=== PATIENT | female | born 1990 | race Caucasian/White ===

== ENCOUNTER 2023-11-09 15:29 | Emergency (ER) | payer OTHER, SELFPAY ==
[2023-11-09 16:20] VITALS: BP 143/76; PULSE 82; RESP 22; TEMP 36.7; O2SAT 100; BMI 58.7
--- NOTE | 2023-11-09 17:10 | EXP.UTC ---
Discharge Plan Disposition Patient Disposition: Home, Self-Care Condition: Good Prescriptions Prescriptions: New gentamicin 0.3 % drops 2 drp ophthalmic (eye) Q4H Qty: 5 0RF Rx Instructions: in right eye as directed amoxicillin-pot clavulanate 875-125 mg Tablet 1 tab PO Q12H Qty: 20 0RF fluticasone propionate [Flonase Allergy Relief] 50 mcg/actuation spray,suspension 1 - 2 spray intranasal DAILY Qty: 16 0RF Rx Instructions: administer into each nostril daily ondansetron 4 mg tablet,disintegrating 4 mg PO Q8H PRN (Reason: nausea and vomiting) Qty: 10 0RF No Action cetirizine 10 mg tablet 10 mg PO DAILY Patient Comments: Take 1 tablet every day by oral route. phentermine 37.5 mg tablet 37.5 mg PO DAILY Patient Comments: TAKE ONE TABLET BY MOUTH ONCE DAILY lisinopril 10 mg tablet 10 mg PO DAILY Patient Comments: TAKE ONE TABLET BY MOUTH ONCE DAILY hydrochlorothiazide 25 mg tablet 25 mg PO DAILY Patient Comments: take 1 tablet in the morning Once a day for 30 day(s) bupropion HCl 150 mg tablet extended release 24 hr 150 mg PO DAILY Patient Comments: Take 1 tablet every day by oral route. Referrals Follow up/Referrals: Fercho Mahoney [Primary Care Provider] - See instructions Activity Restrictions/Add. Instructions Additional Instructions/Restrictions: Take medication as prescribed Use eye drops as prescribed Follow up with your Family Doctor if no improvement or any worsening of symptoms Return if needed Straight to ER if any life threatening symptoms Clinical Impressions Clinical Impression: Sinusitis Qualifiers: Sinusitis location: unspecified location Chronicity: unspecified Qualified Code(s): J32.9 - Chronic sinusitis, unspecified Instructions Patient Instructions: Conjunctivitis, DI for Sinusitis, DI for Conjunctivitis Discharge ED Provider: Rylee Nova [facility] General Stated complaint: congestion, headache Mode of Arrival: Ambulatory Source of Information: Patient Limitations: No Limitations Time Seen by Provider: 11/09/23 17:10 Description of Symptoms (Recalled from Triage Doc. by RN): PATIENT C/O SINUS PRESSURE, RUNNY NOSE, AND RIGHT EYE DRAINAGE SINCE SUNDAY NIGHT HEENT Symptoms (Recalled from RN notes): Yes Resp Symptoms (Recalled from RN notes): No Skin Symptoms (Recalled from RN notes): No MS Symptoms (Recalled from RN notes): No Functional Status (Recalled from RN notes): WNL History of Present Illness Provider Complaint: Patient states that she thinks she has a bad sinus infection States that she has been having sinus pain and pressure on and off for a week worse since Wed States that she can feel it draining at times in the back of her throat and makes her stomach upset 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 and her right eye is draining and looking red Related Data Home Medications Medication Instructions Recorded Confirmed bupropion HCl 150 mg 24 hr tablet, 150 mg PO DAILY 11/09/23 11/09/23 extended release cetirizine 10 mg tablet 10 mg PO DAILY 11/09/23 11/09/23 hydrochlorothiazide 25 mg tablet 25 mg PO DAILY 11/09/23 11/09/23 lisinopril 10 mg tablet 10 mg PO DAILY 11/09/23 11/09/23 phentermine 37.5 mg tablet 37.5 mg PO DAILY 11/09/23 11/09/23 Previous Rx's Medication Instructions Recorded amoxicillin 875 mg-potassium 1 tab PO Q12H #20 tabs 11/09/23 clavulanate 125 mg tablet fluticasone propionate 50 1 - 2 spray intranasal DAILY #16 11/09/23 mcg/actuation nasal grams spray,suspension (Flonase Allergy Relief) gentamicin 0.3 % eye drops 2 drp ophthalmic (eye) Q4H #5 mL 11/09/23 ondansetron 4 mg disintegrating 4 mg PO Q8H PRN nausea and 11/09/23 tablet vomiting #10 tabs Allergies Allergy/AdvReac Type Severity Reaction Status Date / Time sulfamethoxazole Allergy Verified 11/09/23 16:35 [From Bactrim] trimethop
[2023-11-09 17:23] VITALS: BP 143/76; PULSE 82; RESP 22; TEMP 36.7; O2SAT 100
== END 2023-11-09 17:27 | disposition home or self-care (01) ==
PROVIDERS: Emergency Provider Nurse Practitioner; PCP Pediatrics
DX: J01.90 Acute sinusitis, unspecified (principal); H10.31 Unspecified acute conjunctivitis, right eye; R51.9 Headache, unspecified; R09.81 Nasal congestion; R09.82 Postnasal drip; R11.0 Nausea; I10 Essential (primary) hypertension
CPT/HCPCS: 99204; 99212; G0463

== ENCOUNTER 2024-11-08 12:36 | Emergency (ER) | payer OTHER, SELFPAY ==
[2024-11-08 14:15] VITALS: BP 137/78; PULSE 78; RESP 18; TEMP 36.7; O2SAT 100; BMI 62.4
--- NOTE | 2024-11-08 14:53 | EXP.UTC ---
Discharge Plan Disposition Patient Disposition: Home, Self-Care Condition: Good Prescriptions Prescriptions: New benzonatate 100 mg capsule 100 mg PO BID PRN (Reason: cough) 3 Days Qty: 7 0RF azithromycin 250 mg tablet 250 mg PO DIRECTED Qty: 6 0RF Rx Instructions: Take two (2) tablets on day #1, then one (1) tablet day #2 thru #5 fluticasone propionate 50 mcg/actuation spray,suspension 1 spray intranasal DAILY Qty: 16 0RF No Action cetirizine 10 mg tablet 10 mg PO DAILY Patient Comments: Take 1 tablet every day by oral route. phentermine 37.5 mg tablet 37.5 mg PO DAILY Patient Comments: TAKE ONE TABLET BY MOUTH ONCE DAILY lisinopril 10 mg tablet 10 mg PO DAILY Patient Comments: TAKE ONE TABLET BY MOUTH ONCE DAILY hydrochlorothiazide 25 mg tablet 25 mg PO DAILY Patient Comments: take 1 tablet in the morning Once a day for 30 day(s) bupropion HCl 150 mg tablet extended release 24 hr 150 mg PO DAILY Patient Comments: Take 1 tablet every day by oral route. gentamicin 0.3 % drops 2 drp ophthalmic (eye) Q4H Qty: 5 0RF Rx Instructions: in right eye as directed amoxicillin-pot clavulanate 875-125 mg Tablet 1 tab PO Q12H Qty: 20 0RF fluticasone propionate [Flonase Allergy Relief] 50 mcg/actuation spray,suspension 1 - 2 spray intranasal DAILY Qty: 16 0RF Rx Instructions: administer into each nostril daily ondansetron 4 mg tablet,disintegrating 4 mg PO Q8H PRN (Reason: nausea and vomiting) Qty: 10 0RF Referrals Follow up/Referrals: Fercho Mahoney [Primary Care Provider] - See instructions Activity Restrictions/Add. Instructions Additional Instructions/Restrictions: Start antibiotic patient to take as ordered for a full length of time even if you feel better. Sinus infections do not get better overnight. It may take 2-3 days to notice much improvement so be sure to use conservative measures as discussed for symptoms. Flonase 1 spray each nostril daily to help with nasal congestion, sinus and ear pressure/information Increase fluids Humidifier/vaporizer as needed Tylenol and ibuprofen as needed for fever or pain. If symptoms do not improve or get worse return or be seen in the ER Follow-up with primary care this week Clinical Impressions Clinical Impression: Sinusitis Qualifiers: Sinusitis location: unspecified location Chronicity: unspecified Qualified Code(s): J32.9 - Chronic sinusitis, unspecified Instructions Patient Instructions: DI for Sinusitis Print Language Print Language: Upper Sorbian [facility] [place] HPI General Stated complaint: sinus pressure/H/A Mode of Arrival: Ambulatory Source of Information: Patient Limitations: No Limitations Time Seen by Provider: 11/08/24 14:42 Description of Symptoms (Recalled from Triage Doc. by RN): PATIENT C/O COUGH AND SINUS PRESSURE X 2 DAYS HEENT Symptoms (Recalled from RN notes): Yes Resp Symptoms (Recalled from RN notes): Yes Skin Symptoms (Recalled from RN notes): No MS Symptoms (Recalled from RN notes): No Functional Status (Recalled from RN notes): WNL History of Present Illness Provider Complaint: 34-year-old female presents for sinus pressure, cough, sinus tenderness, and thick green drainage. Patient states she has been taken [id number] medicine is not helping Related Data Home Medications ?Medication ?Instructions ?Recorded ?Confirmed bupropion HCl 150 mg 24 hr tablet, 150 mg PO DAILY 11/09/23 11/09/23 extended release cetirizine 10 mg tablet 10 mg PO DAILY 11/09/23 11/09/23 hydrochlorothiazide 25 mg tablet 25 mg PO DAILY 11/09/23 11/09/23 lisinopril 10 mg tablet 10 mg PO DAILY 11/09/23 11/09/23 phentermine 37.5 mg tablet 37.5 mg PO DAILY 11/09/23 11/09/23 Previous Rx's ?Medication ?Instructions ?Recorded amoxicillin 875 mg-potassium 1 tab PO Q12H #20 tabs 11/09/23 clavulanate 125 mg tablet fluticasone propionate 50 1 - 2 spray intranasal DAILY #16 11/09/23 mcg/actuation nasal grams spray,suspension (Flonase Allergy Relief) gentamicin 0.3 % eye drops 2 drp ophthalmic (eye) Q4H #5 mL 11/09/23 ondansetron 4 mg disintegrating 4 mg PO Q8H PRN nausea and 11/09/23 tablet vomiting #10 tabs azithromycin 250 mg tablet 250 mg PO DIRECTED #6 tabs 11/08/24 benzonatate 100 mg capsule 100 mg PO BID PRN cough 3 days #7 11/08/24 caps fluticasone propionate 50 1 spray intranasal DAILY #16 grams 11/08/24 mcg/actuation nasal spray,suspension Allergies Allergy/AdvReac Type Severity Reaction Status Date / Time sulfamethoxazole (From Allergy Verified 11/09/23 16:35 Bactrim) trimethoprim (From Bactrim) Allergy Verified 11/09/23 16:35 Worker's Comp Is this a Worker's Comp case?: No [facility] Disclaimer: The information contained in this section may have been updated after the patient was seen, as this information can be updated by other users. 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) Smoking Status: Unknown if ever smoked alcohol intake: never current occupational status: employed Travel in the last 8 weeks: None Have you lived/traveled outside [place] in past 30 days?: No Contact w/someone who lives/traveled outside US past 30 days?: No Exposure to someone with infectious disease in past 14 days?: No Do you have a fever (greater than 100.4 F or 38 C)?: No Have you tested positive for COVID-19: No Exposed to someone with COVID-19 in past 14 days?: No Do you have a sore throat?: Yes Do you have a cough?: Yes Do you have any weakness?: No Do you have any diarrhea?: No Are you experiencing any unusual bleeding?: No Do you have any muscle aches/pain?: No Do you have any abdominal pain?: No Are you experiencing loss of taste or smell?: No ROS Obtained: Yes Systems reviewed as appropriate & no additional complaints except as documented Physical Exam General General appearance: alert and in no apparent distress Eye Eye exam: Present normal appearance ENT ENT exam: Present normal oropharynx, mucous membranes moist and TM's normal bilaterally Expanded ENT Exam Nose exam: Present sinus tenderness Respiratory Respiratory exam: Present normal lung sounds bilaterally Cardiovascular Cardiovascular exam: Present regular rate and normal rhythm Neurological Exam Neurological exam: Present alert and oriented X3 Skin Skin exam: Present warm and intact Medical Decision Making Medical Records Medical records reviewed: Yes I reviewed the patient's medical records. Screening: Per USPSTF and CDC recommendations, given the prevalence of disease in our region, it is our hospital?s policy to screen for HIV and viral Hepatitis for all patients aged 18 and over and those with ongoing risk factors. Edmundo Inquiry Pt receiving controlled substance: No Vital Signs: 11/08/24 14:15 Temperature 98.0 F Temperature Source Oral Pulse Rate [Left Brachial] 78 Respiratory Rate 18 Blood Pressure [Left Arm] 137/78 Blood Pressure Mean [Left Arm] 97 Blood Pressure Source [Left Arm] Automatic Cuff Blood Pressure Position [Left Arm] Sitting 02 Sat by Pulse Oximetry 100 Oxygen Delivery Method Room Air Lab Data Lab results reviewed: Yes I reviewed the patient's lab results.
[2024-11-08 14:55] VITALS: BP 137/78; PULSE 78; RESP 18; TEMP 36.7; O2SAT 100
== END 2024-11-08 15:06 | disposition home or self-care (01) ==
PROVIDERS: Emergency Provider Nurse Practitioner Family; PCP Pediatrics
DX: J32.9 Chronic sinusitis, unspecified (principal)
CPT/HCPCS: 99213; G0381

== ENCOUNTER 2025-03-29 14:55 | Emergency (ER) | payer OTHER, SELFPAY ==
--- NOTE | 2025-03-29 14:59 | HMH.EDGENADL ---
Discharge Plan Disposition Patient Disposition: Home, Self-Care Condition: Good Prescriptions Prescriptions: New ciprofloxacin HCl [Cipro] 500 mg tablet 500 mg PO BID 5 Days Qty: 10 0RF phenazopyridine [Pyridium] 200 mg tablet 200 mg PO Q8H PRN (Reason: pain) Qty: 6 0RF No Action benzonatate 100 mg capsule 100 mg PO BID PRN (Reason: cough) 3 Days Qty: 7 0RF azithromycin 250 mg tablet 250 mg PO DIRECTED Qty: 6 0RF Rx Instructions: Take two (2) tablets on day #1, then one (1) tablet day #2 thru #5 fluticasone propionate 50 mcg/actuation spray,suspension 1 spray intranasal DAILY Qty: 16 0RF cetirizine 10 mg tablet 10 mg PO DAILY Patient Comments: Take 1 tablet every day by oral route. phentermine 37.5 mg tablet 37.5 mg PO DAILY Patient Comments: TAKE ONE TABLET BY MOUTH ONCE DAILY lisinopril 10 mg tablet 10 mg PO DAILY Patient Comments: TAKE ONE TABLET BY MOUTH ONCE DAILY hydrochlorothiazide 25 mg tablet 25 mg PO DAILY Patient Comments: take 1 tablet in the morning Once a day for 30 day(s) bupropion HCl 150 mg tablet extended release 24 hr 150 mg PO DAILY Patient Comments: Take 1 tablet every day by oral route. gentamicin 0.3 % drops 2 drp ophthalmic (eye) Q4H Qty: 5 0RF Rx Instructions: in right eye as directed amoxicillin-pot clavulanate 875-125 mg Tablet 1 tab PO Q12H Qty: 20 0RF fluticasone propionate [Flonase Allergy Relief] 50 mcg/actuation spray,suspension 1 - 2 spray intranasal DAILY Qty: 16 0RF Rx Instructions: administer into each nostril daily ondansetron 4 mg tablet,disintegrating 4 mg PO Q8H PRN (Reason: nausea and vomiting) Qty: 10 0RF Referrals Follow up/Referrals: Fercho Mahoney [Primary Care Provider] - See instructions Activity Restrictions/Add. Instructions Additional Instructions/Restrictions: I have sent a prescription into your pharmacy. Please take until its gone. If you have continued new or worsening signs or symptoms follow-up with your PCP or [facility] or return to the ER as needed. Clinical Impressions Clinical Impression: Urinary tract infection Qualifiers: Urinary tract infection type: site unspecified Hematuria presence: without hematuria Qualified Code(s): N39.0 - Urinary tract infection, site not specified Instructions Patient Instructions: DI for Urinary Tract Infection (UTI), DI for Urinary Tract Infection in Children Print Language Print Language: [place] Discharge ED Provider: Eric Pozo General Adult HPI <YANELI Marc - Last Filed: 03/29/25 16:35> General Chief complaint: Urogenital-Female Stated complaint: freg urination w/ burning Time Seen by Provider: 03/29/25 14:58 History of Present Illness HPI narrative: Patient presents for evaluation of dysuria. Patient states that she has been having burning with urination since yesterday. When she woke up this morning she started having some lower abdominal symptoms of cramping. She denies any fever chills hemoptysis hematochezia melena nausea vomiting diarrhea. She denies any vaginal discharge. Related Data Home Medications ?Medication ?Instructions ?Recorded ?Confirmed bupropion HCl 150 mg 24 hr tablet, 150 mg PO DAILY 11/09/23 11/09/23 extended release cetirizine 10 mg tablet 10 mg PO DAILY 11/09/23 11/09/23 hydrochlorothiazide 25 mg tablet 25 mg PO DAILY 11/09/23 11/09/23 lisinopril 10 mg tablet 10 mg PO DAILY 11/09/23 11/09/23 phentermine 37.5 mg tablet 37.5 mg PO DAILY 11/09/23 11/09/23 Previous Rx's ?Medication ?Instructions ?Recorded amoxicillin 875 mg-potassium 1 tab PO Q12H #20 tabs 11/09/23 clavulanate 125 mg tablet fluticasone propionate 50 1 - 2 spray intranasal DAILY #16 11/09/23 mcg/actuation nasal grams spray,suspension (Flonase Allergy Relief) gentamicin 0.3 % eye drops 2 drp ophthalmic (eye) Q4H #5 mL 11/09/23 ondansetron 4 mg disintegrating 4 mg PO Q8H PRN nausea and 11/09/23 tablet vomiting #10 tabs azithromycin 250 mg tablet 250 mg PO DIRECTED #6 tabs 11/08/24 benzonatate 100 mg capsule 100 mg PO BID PRN cough 3 days #7 11/08/24 caps fluticasone propionate 50 1 spray intranasal DAILY #16 grams 11/08/24 mcg/actuation nasal spray,suspension ciprofloxacin HCl 500 mg tablet 500 mg PO BID 5 days #10 tabs 03/29/25 (Cipro) phenazopyridine 200 mg tablet 200 mg PO Q8H PRN pain 6 doses #6 03/29/25 (Pyridium) tabs Allergies Allergy/AdvReac Type Severity Reaction Status Date / Time sulfamethoxazole (From Allergy Verified 11/09/23 16:35 Bactrim) trimethoprim (From Bactrim) Allergy Verified 11/09/23 16:35 PFSH <YANELI Marc - Last Filed: 03/29/25 16:35> PFS Disclaimer: The information contained in this section may have been updated after the patient was seen, as this information can be updated by other users. 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) Smoking Status: Never smoker alcohol intake: never current occupational status: employed Travel in the last 8 weeks?: None Have you lived/traveled outside US in past 30 days?: No Contact w/someone who lives/traveled outside US past 30 days?: No Exposure to someone with infectious disease in past 14 days?: No Do you have a fever (greater than 100.4 F or 38 C)?: No Have you tested positive for COVID-19?: No Exposed to someone with COVID-19 in past 14 days?: No Do you have a sore throat?: No Do you have a cough?: No Do you have any weakness?: No Do you have any diarrhea?: No Are you experiencing any unusual bleeding?: No Do you have any muscle aches/pain?: No Do you have any abdominal pain?: No Are you experiencing loss of taste or smell?: No <YANELI Marc - Last Filed: 03/29/25 16:35> ROS Obtained: Yes Systems reviewed as appropriate & no additional complaints except as documented Physical Exam <YANELI Marc - Last Filed: 03/29/25 16:35> General General appearance: alert and in no apparent distress Respiratory Respiratory exam: Present normal lung sounds bilaterally Cardiovascular Cardiovascular exam: Present regular rate Neurological Exam Neurological exam: Present alert and oriented X3 Medical Decision Making <YANELI Marc - Last Filed: 03/29/25 16:35> Medical Records Screening: Per USPSTF and CDC recommendations, given the prevalence of disease in our region, it is our hospital?s policy to screen for HIV and viral Hepatitis for all patients aged 18 and over and those with ongoing risk factors. Edmundo Inquiry Pt receiving controlled substance: No Vital Signs: 03/29/25 15:07 03/29/25 16:32 Temperature 98 F 98.0 F Temperature Source Oral Pulse Rate 71 Pulse Rate [Right Radial] 71 Respiratory Rate 16 16 Blood Pressure 133/54 L Blood Pressure [Right Arm] 133/54 L Blood Pressure Mean [Right Arm] 80 Blood Pressure Source [Right Arm] Automatic Cuff Blood Pressure Position [Right Arm] Sitting 02 Sat by Pulse Oximetry 100 Oxygen Delivery Method Room Air Lab Data Lab results reviewed: Yes I reviewed the patient's lab results. Lab Results 03/29/25 14:57: Urine Color Yellow, Urine Appearance Clear, Urine pH 6.0, Ur Specific [place] 1.020, Urine Protein Negative, Urine Glucose (UA) Negative, Urine Ketones Negative, Urine Blood Trace-i, Urine Nitrate Negative, Urine Bilirubin Negative, Urine Urobilinogen 0.2, Ur Leukocyte Esterase 1+ A, Urine RBC None, Urine WBC 20-50, Ur Squamous Epith Cells 3-5, Urine Bacteria 2+, Urine Yeast Occasional Orders (Tests/Meds): ORDERS Category Date Time Status UA [Urinalysis and Microscopic] Stat Lab 03/29/25 14:57 Completed Urine Culture Stat Micro 03/29/25 14:57 Received Medical Decision Narrative: In summary patient is a 4-year-old female who presents to the emergency department for evaluation of dysuria. Patient is hemodynamically stable upon arrival, afebrile. Physical exam is unremarkable and nonfocal including no CVA tenderness to percussion no abdominal tenderness no rebound or guarding no rigidity normal bowel sounds.. Differential diagnosis includes cystitis versus ascending urinary tract infection versus vaginitis etc. Initial workup will be conducted with urinalysis for now. Initial interventions were considered with Tylenol Motrin however however patient has no fever and is only symptomatic when urinating thus for now we will defer. Initial initial workup reviewed by me and her urinalysis shows trace blood nitrite negative leukocyte esterase 1+ microscopic exam shows no red blood cells 20-50 white cells 3-5 epithelial cells 2+ bacteria and some yeast. Given this patient requested Cipro and Pyridium which I am happy to order and that has been sent into her pharmacy. I have also advised patient she needs to follow-up afterwards for the yeast finding is that it may be contributing to her dysuria symptoms as well. Patient verbalized understanding and agreement. Patient is thus appropriate for discharge with strict return precautions. <Eric Pozo MD - Last Filed: 03/29/25 18:05> Vital Signs: 03/29/25 15:07 03/29/25 16:32 Temperature 98 F 98.0 F Temperature Source Oral Pulse Rate 71 Pulse Rate [Right Radial] 71 Respiratory Rate 16 16 Blood Pressure 133/54 L Blood Pressure [Right Arm] 133/54 L Blood Pressure Mean [Right Arm] 80 Blood Pressure Source [Right Arm] Automatic Cuff Blood Pressure Position [Right Arm] Sitting 02 Sat by Pulse Oximetry 100 Oxygen Delivery Method Room Air Lab Data Lab Results 03/29/25 14:57: Urine Color Yellow, Urine Appearance Clear, Urine pH 6.0, Ur Specific [place] 1.020, Urine Protein Negative, Urine Glucose (UA) Negative, Urine Ketones Negative, Urine Blood Trace-i, Urine Nitrate Negative, Urine Bilirubin Negative, Urine Urobilinogen 0.2, Ur Leukocyte Esterase 1+ A, Urine RBC None, Urine WBC 20-50, Ur Squamous Epith Cells 3-5, Urine Bacteria 2+, Urine Yeast Occasional Orders (Tests/Meds): ORDERS Category Date Time Status UA [Urinalysis and Microscopic] Stat Lab 03/29/25 14:57 Completed Urine Culture Stat Micro 03/29/25 14:57 Received Medical Decision Narrative: In summary patient is a 4-year-old female who presents to the emergency department for evaluation of dysuria. Patient is hemodynamically stable upon arrival, afebrile. Physical exam is unremarkable and nonfocal including no CVA tenderness to percussion no abdominal tenderness no rebound or guarding no rigidity normal bowel sounds.. Differential diagnosis includes cystitis versus ascending urinary tract infection versus vaginitis etc. Initial workup will be conducted with urinalysis for now. Initial interventions were considered with Tylenol Motrin however however patient has no fever and is only symptomatic when urinating thus for now we will defer. Initial initial workup reviewed by me and her urinalysis shows trace blood nitrite negative leukocyte esterase 1+ microscopic exam shows no red blood cells 20-50 white cells 3-5 epithelial cells 2+ bacteria and some yeast. Given this patient requested Cipro and Pyridium which I am happy to order and that has been sent into her pharmacy. I have also advised patient she needs to follow-up afterwards for the yeast finding is that it may be contributing to her dysuria symptoms as well. Patient verbalized understanding and agreement. Patient is thus appropriate for discharge with strict return precautions. I was consulted by the JUSTIN, and we discussed the complexity of the problems being addressed. I approved the treatment and management plan for this patient's care in the Emergency Department, thus performing a substantive portion of the medical decision making. Eric Pozo MD Critical Care <YANELI Marc - Last Filed: 03/29/25 16:35> Critical Care Time Critical Care Time: No
[2025-03-29 15:07] VITALS: BP 133/54; PULSE 71; RESP 16; TEMP 36.6; O2SAT 100; BMI 58.1
--- OUTSIDE RECORDS SUMMARY | 2025-03-29 15:13 | XMS_ITS | Data Portability ---
Author Organization [place] [facility] & SALVADOR Julien ADMIN Address [address] [place] [id number] Care Team Providers Care Drafting Layout Man Name Role Phone FERCHO MAHONEY Primary Care Provider Assessment No assessment recorded. Plan of Treatment Reminders Order Date Submit Date Provider Last Modified By Organization Details Last Modified Time Details Appointments None recorded. Lab None recorded. Referral None recorded. Procedures None recorded. Surgeries None recorded. Imaging None recorded. Medication Orders Contrave 8 mg-90 mg tablet,exte nded release 2023 [facility], [address], [place], [id number], 15:07:53 amoxicillin 875 mg-potassiu m clavulanate 125 mg tablet 2023 024 [facility], [address] [place] [address], [id number], 4 16:06:30 phentermine 37.5 mg tablet 2023 024 [facility], [address] [place] [address], [id number], 4 15:16:20 phentermine 37.5 mg tablet 2023 024 [facility], [address] [place] [address], [id number], 4 15:07:58 topiramate 25 mg tablet 2023 024 [facility], [address] [place] [address], [id number], 4 15:16:20 phentermine 37.5 mg tablet 2023 024 [email or web address] [facility], [address] [place] [address], [id number], 4 15:07:58 topiramate 25 mg tablet 2023 024 [email or web address] [facility], [address] [place] [address], [id number], 4 15:08:02 phentermine 37.5 mg tablet 2023 024 [email or web address] [facility], [address] [place] [address], [id number], 4 15:07:58 topiramate 25 mg tablet 2023 024 [email or web address] [facility], [address] [place] [address], [id number], 4 15:08:02 Patient TargetsNo targets recorded. Patient InstructionsNo instructions recorded. Reason for Referral None Reported. Results Created Date Observation Date Name Description Value Unit Range Abnormal Flag Note LastModifiedBy Organization Detail LastModifiedTime Result Notes None recorded. Problems Name Problem SNOMED Code Status Onset Date Resolution Date Notes Provider Name and Address Organization Details Recorded Time Allergic rhinitis 18623428 Active Linda Duran null, [place] - [facility] - [place] & [place] 2 16:35:08 Morbid obesity 838901914 Active Linda Duran [place], [place] [facility] [place] & [place] 2 16:35:08 Seasonal allergic rhinitis 356531280 Active Linda Duran null, [place] [facility] [place] & [place] 2 16:35:08 Constipation 99657326 Active Linda Duran null, [place] [facility] [place] & [place] 2 16:35:08 Obesity 423414388 Active Linda Duran null, [place] [facility] - [place] & [place] 2 16:35:08 Amenorrhea 36297861 Active Linda Duran null, [place] [facility] - [place] & [place] 2 16:35:08 Hypertensive disorder 31662049 Active Linda Duran null, [place] FR[facility] & [place] 2 16:35:08 Atopic dermatitis 30828017 Active Linda Duran null, [place] [facility] - [place] & [place] 2 16:35:08 Depression - motion Active Linda Duran null, [place] FR[facility] & [place] 2 16:35:08 Chronic urinary tract infection 454324399 Active 2021 Ivonne Garcia null, [place] [facility] & [place] 2 17:57:34 Nausea 322246957 Active 2023 [place] Flanagan [facility] & [place] 4 08:33:36 Problem Notes None recorded. Procedures Surgical History Date Name Laterality Status Provider Name and Address Organization Details Recorded Time extraction of wisdom tooth completed Rubinayaakov Ochoa [place] [facility] & [place] 01/16/2024 15:11:05 Imaging Results None recorded. Procedure Notes None recorded. Medical Equipment None Reported. Allergies Allergen ID Allergen Name Allergen Category Reaction Reaction Severity Criticality Documentation Date Start Date Code Code System Note Provider Name and Address Organization Details Recorded Time 30671 Bactrim medicatio n hives Not available high 09/22/2022 76190 9 RxNorm Aydee plasencia, [place] FRAN[facility] & [place] 2 15:22:59 Medications Name Sig Start Date Stop Date Status Note LastModified by Organization Details LastModified Time cetirizine 10 mg tablet Take 1 tablet every day by oral route. active Not Available Not Available No t Available azithromyci n 250 mg tablet TAKE 2 TABLETS BY MOUTH ON DAY 1, THEN TAKE 1 TABLET DAILY ON DAYS 2-5 08/08 completed Not Available Not Available Not Available ondansetron HCl 8 mg tablet TAKE ONE TABLET BY MOUTH EVERY EIGHT HOURS NEEDED 08/08 completed Not Available Not Available Not Available phenazopyri dine 200 mg tablet take 1 tablet ORAL route every 8 hours for 3 days 05/20 completed Not Available Not Available Not Available ondansetron HCl 4 mg tablet Take 1 tablet every day by oral route for 5 days. 03/18 completed Not Available Not Available Not Available prednisone 20 mg tablet TAKE 1 TABLET BY MOUTH EVERY DAY FOR 5 DAYS 08/08 completed Not Available Not Available Not Available topiramate 25 mg tablet Take 1 tablet twice a day by oral route. 2023 active Not Available Not Available Not Avai lable phentermine 37.5 mg tablet TAKE ONE TABLET BY MOUTH ONCE DAILY active Not Available Not Available No t Available ciprofloxac in 500 mg tablet take 1 tablet ORAL route every 12 hours for 7 days 05/20 completed Not Available Not Available Not Available triamcinolo ne acetonide 0.1 % topical cream APPLY A THIN LAYER TO THE AFFECTED AREA(S) BY TOPICAL ROUTE 2 TIMES PER DAY active Not Available Not Available No t Available amoxicillin 875 mg tablet Take 1 tablet every 12 hours by oral route. 05/20 completed Not Available Not Available Not Available gentamicin 0.3 % eye drops INSTILL 2 DROPS INTO RIGHT EYE EVERY 4 HOURS DIRECTED 03/18 completed Not Available Not Available Not Available nystatin 100,000 unit/gram topical cream APPLY TO THE AFFECTED AREA(S) BY TOPICAL ROUTE 2 TIMES PER DAY active Not Available Not Available No t Available lisinopril 10 mg tablet TAKE ONE TABLET BY MOUTH ONCE DAILY 2023 active Not Available Not Available Not Avai lable hydroxyzine HCl 25 mg tablet TAKE 1 TABLET BY MOUTH EVERY 6 HOURS NEEDED 08/08 completed Not Available Not Available Not Available hydrochloro thiazide 25 mg tablet take 1 tablet in the morning Once a day for 30 day(s) 2023 active Not Available Not Available Not Avai lable ondansetron 4 mg disintegrat ing tablet Place 1 tablet 3 times a day by transling ual route as needed. 03/18 completed Not Available Not Available Not Available cefdinir 300 mg capsule Take 1 capsule by mouth every 12 hours for 10 days. 12/13 completed Not Available Not Available Not Available fluticasone propionate 50 mcg/actuati on nasal spray,suspe nsion USE 1 TO 2 SPRAY(S) IN EACH NOSTRIL ONCE DAILY 03/18 completed Not Available Not Available Not Available amoxicillin 875 mg-potassiu m clavulanate 125 mg tablet Take 1 tablet every 12 hours by oral route. active Not Available Not Available No t Available bupropion HCl XL 150 mg 24 hr tablet, extended release Take 1 tablet every day by oral route. 05/20 completed Not Available Not Available Not Available Contrave 8 mg-90 mg tablet,exte nded release Starting month: 1 TAB DAILY 7 Days, THEN 1 TWICE DAILY 7 Days, THEN 2 in the AM AND 1 in the PM 7 Days THEN your maintenan ce dose is 2 TWICE DAILY active Not Available Not Available No t Available Vitals Date Recorded Body height Body mass index (BMI) Body weight Heart rate Systolic blood pressure Diastolic blood pressure Provider Name and Address Organization Details Last Updated DateTime 4 172.72 cm 57.5 kg/m2 228432. 63 g 76 /min 117 mm[Hg] 76 mm[Hg] Joyce FRANCO [facility] & [place] 4 14:03:01 Date Recorded Body height Body mass index (BMI) Body weight Systolic blood pressure Diastolic blood pressure Provider Name and Address Organization Details Last Updated DateTime 04/15/2024 172.72 cm 57.8 kg/m2 182854.1 g 116 mm[Hg] 68 mm[Hg] Antonella FRANCO [facility] & [place] 4 15:29:50 Date Recorded Body height Body mass index (BMI) Body weight Heart rate Body temperature Systolic blood pressure Diastolic blood pressure Provider Name and Address Organization Details Last Updated DateTime 4 172.72 cm 57.5 kg/m2 494629. 92 g 72 /min 98.1 [degF] 123 mm[Hg] 73 mm[Hg] Joyce Haywood LPNT [facility] & [place] 4 15:33:44 Date Recorded Body height Body mass index (BMI) Body weight Body temperature Heart rate Systolic blood pressure Diastolic blood pressure Provider Name and Address Organization Details Last Updated DateTime 4 172.72 cm 57.7 kg/m2 324295. 95 g 97.7 [degF] 82 /min 128 mm[Hg] 79 mm[Hg] Joyce FRANCO [facility] & [place] 4 15:17:24 Date Recorded Body height Body mass index (BMI) Body weight Heart rate Systolic blood pressure Diastolic blood pressure Provider Name and Address Organization Details Last Updated DateTime 4 172.72 cm 58.1 kg/m2 445422 g 81 /min 116 mm[Hg] 72 mm[Hg] Joyce FRANCO [facility] & [place] 4 14:24:40 Social History Question Answer Notes LastModified by Organizat ion Details LastModified Time Tobacco Smoking Status Never Smoker Lyn plasencia, [facility] [place] 08/08/2022 15:14:27 Do You Have An Advance Directive? No Information n ot available 08/08/2022 What Is Your Level Of Alcohol Consumption? None Information not available 08/08/2022 If You Are , What Was Your Level Of Alcohol Consumption Prior To ? None Information not available 06/13/2023 Do You Wear A Helmet When Biking? Yes [email or web address] Information not available 06/17/2024 Are You Blind Or Do You Have Difficulty Seeing? No Information n ot available 08/08/2022 Is Blood Transfusion Acceptable In An Emergency? Yes Information not available 08/08/2022 What Is Your Level Of Caffeine Consumption? Occasional [email or web address] Information not available 09/22/2022 In The 14 Days Before Symptom Onset, Have You Had Close Contact With A Laboratory-confirm ed COVID-19 While That Case Was Ill? No Information n ot available 08/08/2022 In The 14 Days Before Symptom Onset, Have You Had Close Contact With A Person Who Is Under Investigation For COVID-19 While That Person Was Ill? No Information not available 08/08/2022 Have You Been To An Area Known To Be High Risk For COVID-19? No Information not available 08/08/2022 Are You Currently Employed? Yes Information not available 08/08/2022 Are You Deaf Or Do You Have Serious Difficulty Hearing? No Information not available 08/08/2022 What Type Of Diet Are You Following? REGULAR [email or web address] Information n ot available 09/22/2022 Have You Processed Blood Or Body Fluids From An Ebola Virus Disease Patient Without Appropriate PPE? No Information not available 08/08/2022 Do You Reside In Or Have You Traveled To An Area Where Ebola Virus Transmission Is Active? No Information not available 08/08/2022 Have There Been Any Changes To Your Family Or Social Situation? No [email or web address] Information no t available 09/22/2022 What Is The Fluoride Status Of Your Home? Unknown Information not available 09/22/2022 Are There Any Guns Present In Your Home? Yes Information not available 08/08/2022 Have You Recently Or Are You Planning To Travel To An Area With Zika Virus? No Information not available 08/08/2022 Do You Use Insect Repellent Routinely? No Information not available 08/08/2022 Do You Feel Safe At Home? Yes [email or web address] Information not available 06/17/2024 Do You Have A Medical Power Of Reeling And Tubing Machine Operator? No Information not available 06/17/2024 What Was The Date Of Your Most Recent Tobacco Screening? 06/13/2023 [email or web address] Information not available 06/13/2023 Do You Have Any Pets? Yes Information not available 08/08/2022 What Is Your Relationship Status? Information not available 04/10/2023 Do You Use Your Seat Belt Or Car Seat Routinely? Yes [email or web address] Information not available 09/22/2022 Are You Sexually Active? Yes Information not available 04/10/2023 Do You Have Smoke And Carbon Monoxide Detectors In Your Home? Yes Information not available 08/08/2022 Are You Passively Exposed To Smoke? No Information no t available 08/08/2022 Do You Feel Stressed (tense, Restless, Nervous, Or Anxious, Or Unable To Sleep At Night)? [id number] Information not available 08/08/2022 Do You Use Any Illicit Or Recreational Drugs? No Information not available 09/22/2022 Do You Use Sunscreen Routinely? No Information not available 08/08/2022 Has Tobacco Cessation Counseling Been Provided? No Information not available 08/08/2022 Are You Currently In School? No Information not available 08/08/2022 Do You Or Have You Ever Used Any Other Forms Of Tobacco Or Nicotine? No Information not available 08/08/2022 Sex: Female Functional Status Question Answer Note LastModified by Organizat ion Details LastModified Time Do you have difficulty walking or climbing stairs? No Information not available 08/08/2022 Do you have transportation difficulties? No Information not available 08/08/2022 Are you able to walk? YESWOREST [email or web address] Information not available 09/22/2022 Do you have difficulty doing errands alone? No Information not available 08/08/2022 Are you able to care for yourself? Yes Information not available 08/08/2022 Do you have difficulty dressing or bathing? No Information not available 08/08/2022 What is your exercise level? Moderate Information not available 08/08/2022 Mental Status Question Answer Note LastModified by Organization D etails LastModified Time Do you have difficulty concentrating, remembering or making decisions? No Information no t available 08/08/2022 Family History Relationship Description Onset Age of this Age Resolved Age Notes LastModified by Organization Details LastModified Time Father No current problems or disability Not available 08/08 15:14:02 Mother No current problems or disability Not available 08/08 15:14:02 Notes:Mother-CAD Father-HTN 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 Condition Response Coronary Artery Disease N Gout N Kidney Stones N Hyperthyroidism N Depression N COPD N Hypothyroidism N Difficulty Swallowing N Anxiety Disorder N Meniere's disease N Obesity Y Arthritis N Mental Disorder N Cancer N Stroke N High Cholesterol N Liver Disease N Fibromyalgia N Kidney Disease N Anemia N MRSA exposure N Diabetes N Tuberculosis N AIDS/HIV N Congestive Heart Failure (CHF) N Diverticulitis N Asthma N Reflux/GERD N Heart Disease N Pulmonary Embolism N Chronic Ear Infections N Hypertension Y Osteoporosis N Gynecological HistoryNo gynecological history recorded. Obstetrics History GPAL:G 0 P 0 0 0 0 Immunizations Vaccine Type Date Status Note Provider Nam e and Address Organization Details Recorded Time Hep B, adolescent or pediatric 2 completed Ivonne Emilyharty null, [place] [facility] [place] & [place] 09/08/2022 16:07:42 Td (adult), 2 Lf tetanus toxoid, preservative free, adsorbed 3 completed Ivonne Fleharty null, [place] [facility] [place] & [place] 09/08/2022 16:07:42 Hep B, adolescent or pediatric 1 completed Ivonne Emilyharty [place], [place] [facility] [place] 09/08/2022 16:07:42 Hep B, adolescent or pediatric 0 completed Ivonne Fleharty [place] [facility] [place] & [place] 09/08/2022 16:07:42 MMR 0 completed Ivonne Fleharty [place], [place] [facility] [place] 09/08/2022 16:07:42 varicella 3 completed Ivonne Emilyharty null, [place] [facility] [place] & [place] 09/08/2022 16:07:42 Past Encounters Encounter ID Performer Location Encounter Start Date Encounter Closed Date Diagnosis/Indication Diagnosis SNOMED-CT Code Diagnosis ICD10 Code Diagnosis Note [id number] Fercho Mahoney MD [facility] and IM Anna katz [address], [place] [address] 08/08/2022 14:16:23 08/08/2022 15:34:18 Morbid obesity 506644667 E66.01 Medical supervised weight loss regimen has been prescribed today. Continued to stress the importance of strict caloric restrictio n to no more than 1200 cals per day. Stressed not to go below 1000 heather per day. Stress the need for regular, frequent exercise regimen at a goal of 3-4 times per week at a minimum. We are initiating /continuin g a medical weight loss medication today as well. Pt voices understand ing of potential risk and side effect. Pt understand s that routine and frequent office visits must occur (monthly weight checks with blood pressure measuremen ts and a routine follow up every 3-4 mos visits with MD.) IF weight loss is not occurring or if adverse affects develop, we will stop the weight loss medication . Pt voices understand ing. A total of 20 minutes was spent in regard to this patient's visit reviewing labs and/or imaging, reviewing the patients records, conducting a physical examinatio n, preparing the treatment plan, and discussing the treatment plan with its risk and benefits with the patient today. All questions have been answered. [id number] MD Jordi Kinsey and IM [address] [place] [address] 09/08/2022 15:36:24 09/08/2022 16:48:57 Morbid obesity 010835441 E66.01 Medical supervised weight loss regimen has been prescribed today. Continued to stress the importance of strict caloric restrictio n to no more than 1200 cals per day. Stressed not to go below 1000 heather per day. Stress the need for regular, frequent exercise regimen at a goal of 3-4 times per week at a minimum. We are initiating /continuin g a medical weight loss medication today as well. Pt voices understand ing of potential risk and side effect. Pt understand s that routine and frequent office visits must occur (monthly weight checks with blood pressure measuremen ts and a routine follow up every 3-4 mos visits with MD.) IF weight loss is not occurring or if adverse affects develop, we will stop the weight loss medication . Pt voices understand ing. A total of 20 minutes was spent in regard to this patient's visit reviewing labs and/or imaging, reviewing the patients records, conducting a physical examinatio n, preparing the treatment plan, and discussing the treatment plan with its risk and benefits with the patient today. All questions have been answered. [id number] MD Jordi Tovar and IM [address] [place] [address] 09/22/2022 15:09:29 09/22/2022 15:50:45 Acute sinusitis 32854601 J01.90 Tylenol/Mo jen p.r.n. fever. Push p.o. fluid intake. Patient to call if symptoms worsen. [id number] MD Jordi Kinsey and [address], [place] [address] 03/13/2023 17:00:03 03/13/2023 18:15:03 Morbid obesity 731520904 E66.01 Medical supervised weight loss regimen has been prescribed today. Continued to stress the importance of strict caloric restrictio n to no more than 1200 cals per day. Stressed not to go below 1000 heather per day. Stress the need for regular, frequent exercise regimen at a goal of 3-4 times per week at a minimum. We are initiating /continuin g a medical weight loss medication today as well. Pt voices understand ing of potential risk and side effect. Pt understand s that routine and frequent office visits must occur (monthly weight checks with blood pressure measuremen ts and a routine follow up every 3-4 mos visits with MD.) IF weight loss is not occurring or if adverse affects develop, we will stop the weight loss medication . Pt voices understand ing. I do recommend her revisiting the bariatric surgery clinic as I feel a medically supervised wt loss plan with phentermin e will not likely have her meet his goal. A total of 30 minutes was spent in regard to this patient's visit reviewing labs and/or imaging, reviewing the patients records, conducting a physical examinatio n, preparing the treatment plan, and discussing the treatment plan with its risk and benefits with the patient today. All questions have been answered. Candidiasis of skin 4988 3006 B37.2 Seasonal allergy 7515601 04 J30.2 Essential hypertension 80811611 I10 [id number] MD Jordi Kinsey and Anna [address], [place] [id number] 04/10/2023 14:39:00 04/10/2023 15:35:43 Morbid obesity 062150772 E66.01 Medical supervised weight loss regimen has been prescribed today. Continued to stress the importance of strict caloric restrictio n to no more than 1200 cals per day. Stressed not to go below 1000 heather per day. Stress the need for regular, frequent exercise regimen at a goal of 3-4 times per week at a minimum. We are initiating /continuin g a medical weight loss medication today as well. Pt voices understand ing of potential risk and side effect. Pt understand s that routine and frequent office visits must occur (monthly weight checks with blood pressure measuremen ts and a routine follow up every 3-4 mos visits with MD.) IF weight loss is not occurring or if adverse affects develop, we will stop the weight loss medication . Pt voices understand ing. I do recommend her revisiting the bariatric surgery clinic--sabas cloud has done this and working throught at process now. A total of 30 minutes was spent in regard to this patient's visit reviewing labs and/or imaging, reviewing the patients records, conducting a physical examinatio n, preparing the treatment plan, and discussing the treatment plan with its risk and benefits with the patient today. All questions have been answered. Candidiasis of skin 4988 3006 B37.2 Acute sinusitis 79945164 J01.90 [id number] Fercho Mahoney MD [facility] and [address] [place] [address] 05/17/2023 14:35:23 05/17/2023 16:41:24 Morbid obesity 014442085 E66.01 Medical supervised weight loss regimen has been prescribed today. Continued to stress the importance of strict caloric restrictio n to no more than 1200 cals per day. Stressed not to go below 1000 heather per day. Stress the need for regular, frequent exercise regimen at a goal of 3-4 times per week at a minimum. We are initiating /continuin g a medical weight loss medication today as well. Pt voices understand ing of potential risk and side effect. Pt understand s that routine and frequent office visits must occur (monthly weight checks with blood pressure measuremen ts and a routine follow up every 3-4 mos visits with MD.) IF weight loss is not occurring or if adverse affects develop, we will stop the weight loss medication . Pt voices understand ing. Has been moving forward with wt loss surgeyr process as well. A total of 30 minutes was spent in regard to this patient's visit reviewing labs and/or imaging, reviewing the patients records, conducting a physical examinatio n, preparing the treatment plan, and discussing the treatment plan with its risk and benefits with the patient today. All questions have been answered. Candidiasis of skin 4988 3006 B37.2 Acute urin liban tract infection 304071453 N39.0 [id number] MD Jordi Kinsey and [address] [place] [id number] 06/13/2023 14:23:55 06/13/2023 15:08:19 Morbid obesity 875677232 E66.01 Medical supervised weight loss regimen has been prescribed today. Continued to stress the importance of strict caloric restrictio n to no more than 1200 cals per day. Stressed not to go below 1000 heather per day. Stress the need for regular, frequent exercise regimen at a goal of 3-4 times per week at a minimum. We are initiating /continuin g a medical weight loss medication today as well. Pt voices understand ing of potential risk and side effect. Pt understand s that routine and frequent office visits must occur (monthly weight checks with blood pressure measuremen ts and a routine follow up every 3-4 mos visits with MD.) IF weight loss is not occurring or if adverse affects develop, we will stop the weight loss medication . Pt voices understand ing. Has been moving forward with wt loss surgeyr process as well. A total of 30 minutes was spent in regard to this patient's visit reviewing labs and/or imaging, reviewing the patients records, conducting a physical examinatio n, preparing the treatment plan, and discussing the treatment plan with its risk and benefits with the patient today. All questions have been answered. [id number] MD Jordi Kinsey and [address] [address] l[address] [place], [place] [address] 07/11/2023 13:01:43 07/11/2023 13:41:11 Morbid obesity 790037001 E66.01 Medical supervised weight loss regimen has been prescribed today. Continued to stress the importance of strict caloric restrictio n to no more than 1200 cals per day. Stressed not to go below 1000 heather per day. Stress the need for regular, frequent exercise regimen at a goal of 3-4 times per week at a minimum. We are initiating /continuin g a medical weight loss medication today as well. Pt voices understand ing of potential risk and side effect. Pt understand s that routine and frequent office visits must occur (monthly weight checks with blood pressure measuremen ts and a routine follow up every 3-4 mos visits with MD.) IF weight loss is not occurring or if adverse affects develop, we will stop the weight loss medication . Pt voices understand ing. Has been moving forward with wt loss surgeyr process as well. A total of 30 minutes was spent in regard to this patient's visit reviewing labs and/or imaging, reviewing the patients records, conducting a physical examinatio n, preparing the treatment plan, and discussing the treatment plan with its risk and benefits with the patient today. All questions have been answered. [id number] [facility] [place] [address] [place] [address] 08/14/2023 13:44:08 08/14/2023 14:28:59 Morbid obesity [id number] E66.01 Medical supervised weight loss regimen has been prescribed today. Continued to stress the importance of strict caloric restrictio n to no more than 1200 cals per day. Stressed not to go below 1000 heather per day. Stress the need for regular, frequent exercise regimen at a goal of 3-4 times per week at a minimum. We are initiating /continuin g a medical weight loss medication today as well. Pt voices understand ing of potential risk and side effect. Pt understand s that routine and frequent office visits must occur (monthly weight checks with blood pressure measuremen ts and a routine follow up every 3-4 mos visits with MD.) IF weight loss is not occurring or if adverse affects develop, we will stop the weight loss medication . Pt voices understand ing. Has been moving forward with wt loss surgeyr process as well. A total of 30 minutes was spent in regard to this patient's visit reviewing labs and/or imaging, reviewing the patients records, conducting a physical examinatio n, preparing the treatment plan, and discussing the treatment plan with its risk and benefits with the patient today. All questions have been answered. 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 Potential side effects have also been discussed at length with the patient today. All questions have been answered and specifics on how to take the medication , what to do if side effects develop, and what to expect in regard to the effectiven ess of the medication . Patient also knows when to return for follow up, went contact physician deputy coroner, and when to seek emergent help if symptoms worsen or side effects developed. Patient understand s how the medication works and when to expect a benefit of the medication . Patient also understand s the benefit of counseling as discussed today. Phone numbers have been given to contact a counselor. Patient knows that the counselor appointmen t will be made once they contact the counselor on their own. [id number] MD Jordi Kinsey and Anna [address] [place] [address] 09/12/2023 16:19:15 09/12/2023 16:50:43 Morbid obesity [id number] E66.01 Medical supervised weight loss regimen has been prescribed today. Continued to stress the importance of strict caloric restrictio n to no more than 1200 cals per day. Stressed not to go below 1000 heather per day. Stress the need for regular, frequent exercise regimen at a goal of 3-4 times per week at a minimum. We are initiating /continuin g a medical weight loss medication today as well. Pt voices understand ing of potential risk and side effect. Pt understand s that routine and frequent office visits must occur (monthly weight checks with blood pressure measuremen ts and a routine follow up every 3-4 mos visits with MD.) IF weight loss is not occurring or if adverse affects develop, we will stop the weight loss medication . Pt voices understand ing. Has been moving forward with wt loss surgeyr process as well. A total of 30 minutes was spent in regard to this patient's visit reviewing labs and/or imaging, reviewing the patients records, conducting a physical examinatio n, preparing the treatment plan, and discussing the treatment plan with its risk and benefits with the patient today. All questions have been answered. [id number] MD Jordi Kinsey and [address] [place] [address] 10/16/2023 14:53:37 10/16/2023 15:50:15 Morbid obesity [id number] E66.01 Medical supervised weight loss regimen has been prescribed today. Continued to stress the importance of strict caloric restrictio n to no more than 1200 cals per day. Stressed not to go below 1000 heather per day. Stress the need for regular, frequent exercise regimen at a goal of 3-4 times per week at a minimum. We are initiating /continuin g a medical weight loss medication today as well. Pt voices understand ing of potential risk and side effect. Pt understand s that routine and frequent office visits must occur (monthly weight checks with blood pressure measuremen ts and a routine follow up every 3-4 mos visits with MD.) IF weight loss is not occurring or if adverse affects develop, we will stop the weight loss medication . Pt voices understand ing. Has been moving forward with wt loss surgery process as well. A total of 20 minutes was spent in regard to this patient's visit reviewing labs and/or imaging, reviewing the patients records, conducting a physical examinatio n, preparing the treatment plan, and discussing the treatment plan with its risk and benefits with the patient today. All questions have been answered. [id number] Fercho Mahoney MD [facility] and [address] [place] [address] 11/15/2023 13:12:43 11/15/2023 14:14:22 Morbid obesity [id number] E66.01 Medical supervised weight loss regimen has been prescribed today. Continued to stress the importance of strict caloric restrictio n to no more than 1200 cals per day. Stressed not to go below 1000 heather per day. Stress the need for regular, frequent exercise regimen at a goal of 3-4 times per week at a minimum. We are initiating /continuin g a medical weight loss medication today as well. Pt voices understand ing of potential risk and side effect. Pt understand s that routine and frequent office visits must occur (monthly weight checks with blood pressure measuremen ts and a routine follow up every 3-4 mos visits with MD.) IF weight loss is not occurring or if adverse affects develop, we will stop the weight loss medication . Pt voices understand ing. Has been moving forward with wt loss surgery process as well. A total of 20 minutes was spent in regard to this patient's visit reviewing labs and/or imaging, reviewing the patients records, conducting a physical examinatio n, preparing the treatment plan, and discussing the treatment plan with its risk and benefits with the patient today. All questions have been answered. [id number] MD Jordi Kinsey and [address] [place] [address] 12/18/2023 13:41:00 12/18/2023 14:18:11 Morbid obesity [id number] E66.01 Medical supervised weight loss regimen has been prescribed today. Continued to stress the importance of strict caloric restrictio n to no more than 1200 cals per day. Stressed not to go below 1000 heather per day. Stress the need for regular, frequent exercise regimen at a goal of 3-4 times per week at a minimum. We are initiating /continuin g a medical weight loss medication today as well. Pt voices understand ing of potential risk and side effect. Pt understand s that routine and frequent office visits must occur (monthly weight checks with blood pressure measuremen ts and a routine follow up every 3-4 mos visits with MD.) IF weight loss is not occurring or if adverse affects develop, we will stop the weight loss medication . Pt voices understand ing. Has been moving forward with wt loss surgery process as well. A total of 20 minutes was spent in regard to this patient's visit reviewing labs and/or imaging, reviewing the patients records, conducting a physical examinatio n, preparing the treatment plan, and discussing the treatment plan with its risk and benefits with the patient today. All questions have been answered. [id number] MD Jordi Kinsey and [address] [place] [address] 01/15/2024 16:26:53 01/15/2024 18:03:13 Morbid obesity [id number] E66.01 Medical supervised weight loss regimen has been prescribed today. Continued to stress the importance of strict caloric restrictio n to no more than 1200 cals per day. Stressed not to go below 1000 heather per day. Stress the need for regular, frequent exercise regimen at a goal of 3-4 times per week at a minimum. We are initiating /continuin g a medical weight loss medication today as well. Pt voices understand ing of potential risk and side effect. Pt understand s that routine and frequent office visits must occur (monthly weight checks with blood pressure measuremen ts and a routine follow up every 3-4 mos visits with MD.) IF weight loss is not occurring or if adverse affects develop, we will stop the weight loss medication . Pt voices understand ing. Has been moving forward with wt loss surgery process as well. A total of 20 minutes was spent in regard to this patient's visit reviewing labs and/or imaging, reviewing the patients records, conducting a physical examinatio n, preparing the treatment plan, and discussing the treatment plan with its risk and benefits with the patient today. All questions have been answered. [id number] MD Jordi Kinsey and IM [address] [address] 02/15/2024 15:30:58 02/15/2024 17:42:48 Morbid obesity [id number] E66.01 Medical supervised weight loss regimen has been prescribed today. Continued to stress the importance of strict caloric restrictio n to no more than 1200 cals per day. Stressed not to go below 1000 heather per day. Stress the need for regular, frequent exercise regimen at a goal of 3-4 times per week at a minimum. We are initiating /continuin g a medical weight loss medication today as well. Pt voices understand ing of potential risk and side effect. Pt understand s that routine and frequent office visits must occur (monthly weight checks with blood pressure measuremen ts and a routine follow up every 3-4 mos visits with MD.) IF weight loss is not occurring or if adverse affects develop, we will stop the weight loss medication . Pt voices understand ing. Has been moving forward with wt loss surgery process as well. A total of 20 minutes was spent in regard to this patient's visit reviewing labs and/or imaging, reviewing the patients records, conducting a physical examinatio n, preparing the treatment plan, and discussing the treatment plan with its risk and benefits with the patient today. All questions have been answered. [id number] MD Jordi Kinsey and IM [address] [place] [address] 03/18/2024 13:52:16 03/18/2024 15:00:35 Morbid obesity [id number] E66.01 Medical supervised weight loss regimen has been prescribed today. Continued to stress the importance of strict caloric restrictio n to no more than 1200 cals per day. Stressed not to go below 1000 heather per day. Stress the need for regular, frequent exercise regimen at a goal of 3-4 times per week at a minimum. We are initiating /continuin g a medical weight loss medication today as well. Pt voices understand ing of potential risk and side effect. Pt understand s that routine and frequent office visits must occur (monthly weight checks with blood pressure measuremen ts and a routine follow up every 3-4 mos visits with MD.) IF weight loss is not occurring or if adverse affects develop, we will stop the weight loss medication . Pt voices understand ing. A total of 30 minutes was spent in regard to this patient's visit reviewing labs and/or imaging, reviewing the patients records, conducting a physical examinatio n, preparing the treatment plan, and discussing the treatment plan with its risk and benefits with the patient today. All questions have been answered. Acute urin liban tract infection [id number] N39.0 Has completed Cipro; We will track down UCx result as they did not send for our review. [id number] [facility] and IM Anna [address]atz [address] [place] [address] 04/15/2024 14:52:44 04/15/2024 15:48:27 Morbid obesity [id number] E66.01 Medical supervised weight loss regimen has been prescribed today. Continued to stress the importance of strict caloric restrictio n to no more than 1200 cals per day. Stressed not to go below 1000 heather per day. Stress the need for regular, frequent exercise regimen at a goal of 3-4 times per week at a minimum. We are initiating /continuin g a medical weight loss medication today as well. Pt voices understand ing of potential risk and side effect. Pt understand s that routine and frequent office visits must occur (monthly weight checks with blood pressure measuremen ts and a routine follow up every 3-4 mos visits with MD.) IF weight loss is not occurring or if adverse affects develop, we will stop the weight loss medication . Pt voices understand ing. Patient has now scheduled an appointmen t with the bariatric clinic on May 23. The plan at day will either be to pursue bariatric surgery versus referral into the weight loss management clinic to help with continued medication management of her weight loss regimen. We will continue her current medication s until that date. If she goes on for surgery, we may need to continue the current weight loss medication s until the date of surgery, but if she gets in with the weight loss management Clinic, they will assume prescribin g of her medication s. A total of 20 minutes was spent in regard to this patient's visit reviewing labs and/or imaging, reviewing the patients records, conducting a physical examinatio n, preparing the treatment plan, and discussing the treatment plan with its risk and benefits with the patient today. All questions have been answered. Acute urin liban tract infection [id number] N39.0 Has completed Cipro; We will track down UCx result as they did not send for our review. [id number] Fercho Mahoney MD [facility] and IM [address] [place] [address] 05/20/2024 15:14:34 05/20/2024 16:32:01 Morbid obesity [id number] E66.01 Medical supervised weight loss regimen has been prescribed today. Continued to stress the importance of strict caloric restrictio n to no more than 1200 cals per day. Stressed not to go below 1000 heather per day. Stress the need for regular, frequent exercise regimen at a goal of 3-4 times per week at a minimum. We are initiating /continuin g a medical weight loss medication today as well. Pt voices understand ing of potential risk and side effect. Pt understand s that routine and frequent office visits must occur (monthly weight checks with blood pressure measuremen ts and a routine follow up every 3-4 mos visits with .) IF weight loss is not occurring or if adverse affects develop, we will stop the weight loss medication . Pt voices understand ing. Patient has now scheduled an appointmen t with the bariatric clinic on May 23. The plan at day will either be to pursue bariatric surgery versus referral into the weight loss management clinic to help with continued medication management of her weight loss regimen. We will continue her current medication s until that date. If she goes on for surgery, we may need to continue the current weight loss medication s until the date of surgery, but if she gets in with the weight loss management Clinic, they will assume prescribin g of her medication s. A total of 20 minutes was spent in regard to this patient's visit reviewing labs and/or imaging, reviewing the patients records, conducting a physical examinatio n, preparing the treatment plan, and discussing the treatment plan with its risk and benefits with the patient today. All questions have been answered. [id number] MD Jordi Kinsey and [address] [place] [address] 06/17/2024 14:29:45 06/17/2024 15:42:18 Morbid obesity [id number] E66.01 Medical supervised weight loss regimen has been prescribed today. Continued to stress the importance of strict caloric restrictio n to no more than 1200 cals per day. Stressed not to go below 1000 heather per day. Stress the need for regular, frequent exercise regimen at a goal of 3-4 times per week at a minimum. We are initiating /continuin g a medical weight loss medication today as well. Pt voices understand ing of potential risk and side effect. Pt understand s that routine and frequent office visits must occur (monthly weight checks with blood pressure measuremen ts and a routine follow up every 3-4 mos visits with MD.) IF weight loss is not occurring or if adverse affects develop, we will stop the weight loss medication . Pt voices understand ing. 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 Discuss contrave but this may be cost limited as well. A total of 20 minutes was spent in regard to this patient's visit reviewing labs and/or imaging, reviewing the patients records, conducting a physical examinatio n, preparing the treatment plan, and discussing the treatment plan with its risk and benefits with the patient today. All questions have been answered. [id number] MD Jordi Kinsey and [address] [place] [address] 07/17/2024 14:13:20 07/17/2024 15:06:45 Obesity [id number] E66.09 Acute sinusitis [id number] J01.90 Health Concerns Section Related Observation LastModified by Organization Detai ls LastModified Time None Recorded Concern Status LastModified by Organization Details LastModified Time None Recorded Advance Directives Directive N: Payers Insurance Date Sequence Insurance Name Policy Number Policy Rodriguez Covered Member ID Rodriguez Member ID Guarantor Name 10/25/2024 1 [employer] [facility] (MEDICAID HMO) Blake Jacob [id number] Blake Jacob Notes Date Note Type Note Provider Name and Address Organization Details Recorded Time 03/18/2024 text/html The pt presents today for F/U on medically supervised wt loss. PT voices tolerating the medication without side effects or difficulty. Pt is trying to maintain and caloric restriction diet, with the goal of no less than 1200 heather per day. Pt is utilizing the [employer] pal ria, or something similar to track daily caloric intake. Pt is working on attempting routine cardiovascular exercise at least 3 times weekly. Pt is has struggled some to maintain the goals as listed above, but is working hard to meet those goals. Pt denies any adverse side effects or concerns today. Weight is {{improving* unchang ed worsening}} today. doing well. Wt down from last time; no new concerns. Now on Topomax and phentermine. Has upcoming intake eval with bariatric clinic. Patient has also taking her son to the weight loss clinic at [facility] given his own struggles with obesity. They have laid out a plan to help her be successful with her children as well as herself. They are taking some classes. Even the nutrition counselor with the weight loss clinic for her son has recommended discussion with her PCP the addition of Topamax to the phentermine to help with her weight and weight loss journey. She also discuss this with the bariatric clinic who felt it was a good idea. They will continue to pursue evaluation for bariatric surgery, but feel that as long as she is being successful in pursuing lifestyle changes, the more weight that she can lose prior to bariatric surgery, the more successful her bariatric surgery will be. She does have follow-up with them, but has continued to pursue aggressive lifestyle changes. UTI: Treated at [facility]. On cipro. GIven pyridium. Has now completed abx and feeling better, but told to FU with PCP about Ucx. Fercho Mahoney MD [address], [place], [id number], [facility] - [place] & [place] 03/18/2024 15:01:27 04/15/2024 text/html The pt presents today for F/U on medically supervised wt loss. PT voices tolerating the medication without side effects or difficulty. Pt is trying to maintain and caloric restriction diet, with the goal of no less than 1200 heather per day. Pt is utilizing the [employer] pal ria, or something similar to track daily caloric intake. Pt is working on attempting routine cardiovascular exercise at least 3 times weekly. Pt is has struggled some to maintain the goals as listed above, but is working hard to meet those goals. Pt denies any adverse side effects or concerns today. Weight is {{improving* unchang ed worsening}} today. doing well. Wt down from last time; no new concerns. Now on Topomax and phentermine. Has upcoming intake eval with bariatric clinic--> May 23. Patient has also taking her son to the weight loss clinic at [facility] given his own struggles with obesity. They have laid out a plan to help her be successful with her children as well as herself. They are taking some classes. Even the nutrition counselor with the weight loss clinic for her son has recommended discussion with her PCP the addition of Topamax to the phentermine to help with her weight and weight loss journey. She also discuss this with the bariatric clinic who felt it was a good idea. They will continue to pursue evaluation for bariatric surgery, but feel that as long as she is being successful in pursuing lifestyle changes, the more weight that she can lose prior to bariatric surgery, the more successful her bariatric surgery will be. She does have follow-up with them, but has continued to pursue aggressive lifestyle changes. Fercho Mahoney MD [address], [place], [address], [place] - [facility] - [place] & [place] 04/15/2024 15:55:39 05/20/2024 text/html The pt presents today for F/U on medically supervised wt loss. PT voices tolerating the medication without side effects or difficulty. Pt is trying to maintain and caloric restriction diet, with the goal of no less than 1200 heather per day. Pt is utilizing the [employer] pal ria, or something similar to track daily caloric intake. Pt is working on attempting routine cardiovascular exercise at least 3 times weekly. Pt is has struggled some to maintain the goals as listed above, but is working hard to meet those goals. Pt denies any adverse side effects or concerns today. Weight is {{improving* unchang ed worsening}} today. doing well. Wt down from last time; no new concerns. Now on Topomax and phentermine. Eunice well. Reported last visit, that she had upcoming intake eval with bariatric clinic--> May 23. Patient has also taking her son to the weight loss clinic at [facility] given his own struggles with obesity. They have laid out a plan to help her be successful with her children as well as herself. They are taking some classes. Even the nutrition counselor with the weight loss clinic for her son has recommended discussion with her PCP the addition of Topamax to the phentermine to help with her weight and weight loss journey. She also discuss this with the bariatric clinic who felt it was a good idea. They will continue to pursue evaluation for bariatric surgery, but feel that as long as she is being successful in pursuing lifestyle changes, the more weight that she can lose prior to bariatric surgery, the more successful her bariatric surgery will be. She does have follow-up with them, but has continued to pursue aggressive lifestyle changes. This evaluation never happened. Fercho Mahoney MD [id number] [facility], [place], [id number], [facility] - [place] - [place] & [place] 05/20/2024 16:32:55 06/17/2024 text/html The pt presents today for F/U on medically supervised wt loss. PT voices tolerating the medication without side effects or difficulty. Pt is trying to maintain and caloric restriction diet, with the goal of no less than 1200 heather per day. Pt is utilizing the [employer] pal ria, or something similar to track daily caloric intake. Pt is working on attempting routine cardiovascular exercise at least 3 times weekly. Pt is has struggled some to maintain the goals as listed above, but is working hard to meet those goals. Pt denies any adverse side effects or concerns today. Weight is {{improving unchange d* worsening}} today. doing well. Wt down from last time; no new concerns. Now on Topomax and phentermine. Eunice well. Reported last visit, that she had upcoming intake eval with bariatric clinic--> May 23. Patient has also taking her son to the weight loss clinic at [facility] given his own struggles with obesity. They have laid out a plan to help her be successful with her children as well as herself. They are taking some classes. Even the nutrition counselor with the weight loss clinic for her son has recommended discussion with her PCP the addition of Topamax to the phentermine to help with her weight and weight loss journey. She also discuss this with the bariatric clinic who felt it was a good idea. They will continue to pursue evaluation for bariatric surgery, but feel that as long as she is being successful in pursuing lifestyle changes, the more weight that she can lose prior to bariatric surgery, the more successful her bariatric surgery will be. She does have follow-up with them, but has continued to pursue aggressive lifestyle changes. This evaluation never happened. Today reports she has had a on the phone visit with the bariatric clinic who recommended surgery, but the pt cannot afford to miss work at this time. Other medicines too expensive. Current meds not working as well. Fercho Mahoney MD [address] [facility], [place], [id number], [facility] - [facility] & [place] 06/17/2024 21:37:21 07/17/2024 text/html Sinusitis UCRepo rted bypatient.Location:m axillary; frontal Onset/Timing:acute Quality:throbbing; congested; pressure Duration:Symptoms have been worsening over the previous 5-7 days and not improving Severity:moderate Associated Symptoms:purulent nasal drainage bilaterally;fever/ch ills;headache forehead;facial pain bilateral;sinus pain diffuse;sore throat;nasal obstruction bilaterally;dental pain;fatigue Prior Treatmentnasal saline rinse; oral decongestant; Taking tylenol and/or motrin as wellNotes:The pt presents today for F/U on medically supervised wt loss. PT voices tolerating the medication without side effects or difficulty. Pt is trying to maintain and caloric restriction diet, with the goal of no less than 1200 heather per day. Pt is utilizing the [employer] pal ria, or something similar to track daily caloric intake. Pt is working on attempting routine cardiovascular exercise at least 3 times weekly. Pt is has struggled some to maintain the goals as listed above, but is working hard to meet those goals. Pt denies any adverse side effects or concerns today. Weight is worsening today. Fercho Mahoney MD [address], [place], [phone], [facility] - [place] - [place] & [place] 07/17/2024 15:08:21 OBGyn Episode No OBEpisode recorded.
[2025-03-29 15:42] LABS: Microscopic, Urine URINE MICROSCOPIC (MICROSCOPIC)
[2025-03-29 15:43] LABS: Appearance,Urine CLEAR (Clear); Bilirubin,Urine Negative (Negative); Blood, Urine TRACE-I (Negative); Color,Urine YELLOW (Yellow); Glucose,Urine (UA) Negative (Negative); Ketones,Urine Negative (Negative); Leukocyte Esterase,Urine 1+ (Negative); Nitrate,Urine Negative (Negative); Protein,Urine Negative (Negative); Urobilinogen,Urine 0.2 EU/dl (0.2)
[2025-03-29 16:00] LABS: Bacteria,Urine 2+ /lpf; WBC,Urine 20-50 #/hpf (0-3)
[2025-03-29 16:01] LABS: Yeast,Urine Occasional /lpf
[2025-03-29 16:32] VITALS: BP 133/54; PULSE 71; RESP 16; TEMP 36.7; O2SAT 100
--- NOTE | 2025-04-01 11:32 | PC.NURSE ---
I reviewed pt's urine culture with Dr Adrien Scott. He is changing pt to Cefdinir. He sent in new prescription to preferred pharmacy. I attempted to call pt on her cell and left a voicemail.
== END 2025-03-29 16:33 | disposition home or self-care (01) ==
PROVIDERS: Physician Assistant; Emergency Provider Emergency Medicine; PCP Pediatrics
DX: N39.0 Urinary tract infection, site not specified (principal); R10.30 Lower abdominal pain, unspecified; R30.0 Dysuria; R35.0 Frequency of micturition
CPT/HCPCS: 81001; 87086; 87088; 87186; 99283